=== PATIENT | female | born 1960 | race Caucasian/White ===

== ENCOUNTER 2017-02-04 16:28 | Emergency (ER) | payer OTHER ==
[~2017-02-04] VITALS: Wt 49.9 kg
[~2017-02-04 16:28] MED LIST: VICODIN 5/500 505 MG PO; ZITHROMAX Z PA250 MG PO
[2017-02-04] MEDS ORDERED: BISOPROLOL FM5 MG PO (16:39)
[2017-02-04] MEDS ORDERED: MONTELUKAST SOD10 MG PO (16:40)
[2017-02-04 18:31] LABS: BASO % 0.3 % (0.0-1.0); EOS % 0.2 % (1.0-4.0); HEMATOCRIT 38.5 % (37.0-47.0); HEMOGLOBIN 13.3 g/dl (12.0-16.0); LYMPH # 1.5 10*3/uL (1.3-4.4); LYMPH % 24.5 % (27.0-41.0); MEAN CELL VOLUME 92.3 fl (81.0-99.0); MEAN CORPUSCULAR HGB 31.9 pg (27.0-31.0); MEAN CORPUSCULAR HGB CONC 34.5 g/dl (33.0-37.0); MEAN PLATELET VOLUME 9.5 fl (9.6-12.3); MONO # 0.8 10*3/uL (0.1-1.0); MONO % 12.2 % (3.0-9.0); NEUT # 3.9 10*3/uL (2.3-7.9); NEUT % 62.6 % (47.0-73.0); PLATELET COUNT AUTOMATED 128 10*3/uL (130-400); RED BLOOD COUNT 4.17 10*6/uL (4.10-5.10); RED CELL DISTRI WIDTH 12.5 % (0-14.5); WHITE BLOOD COUNT 6.2 10*3/uL (4.8-10.8)
[2017-02-04 18:45] LABS: ALBUMIN 3.5 gm/dl (3.1-4.5); ALKALINE PHOSPHATASE 60 U/L (45-117); BILIRUBIN, TOTAL 0.4 mg/dl (0.2-1.0); BUN 8 mg/dl (7-24); CARBON DIOXIDE 27 mmol/L (21-32); CHLORIDE 104 mmol/L (98-107); EST GLOM FILT AFRICAN AMERICAN > 60 ml/min; GLUCOSE 107 mg/dL (65-99); POTASSIUM 3.9 mmol/L (3.5-5.1); SGOT/AST 28 IU/L (3-35); SGPT/ALT 32 U/L (12-78); SODIUM 138 mmol/L (136-145); TOTAL PROTEIN 7.2 gm/dL (6.4-8.2)
[2017-02-04] MEDS ORDERED: Fioricet 325 MG1 TAB PO (19:13)
== END 2017-02-04 19:47 | disposition home or self-care (01) ==
LOC: ED 16:28
PROVIDERS: Registered Nurse
DX: R51 Headache (principal); R50.9 Fever, unspecified; R52 Pain, unspecified; R25.1 Tremor, unspecified; Z88.1 Allergy status to other antibiotic agents; Z79.899 Other long term (current) drug therapy

== ENCOUNTER → 2021-06-13 | Outpatient (CLI) | payer SELFPAY ==
[~2021-06-13] MED LIST changes: +BISOPROLOL FM5 MG PO; +Fioricet 325 MG1 TAB PO; +MONTELUKAST SOD10 MG PO
== END | disposition home or self-care (01) ==
LOC: MAMMO 11:15
PROVIDERS: ATTEND Internal Medicine
DX: Z12.31 Encounter for screening mammogram for malignant neoplasm of breast (principal)

== ENCOUNTER → 2025-05-03 | Outpatient (CLI) | payer MEDICARE | END | disposition home or self-care (01) | LOC: CT 02:41 | PROVIDERS: ATTEND Internal Medicine | DX: Z12.2 Encounter for screening for malignant neoplasm of respiratory organs (principal); R91.8 Other nonspecific abnormal finding of lung field; I25.10 Atherosclerotic heart disease of native coronary artery without angina pectoris; J43.9 Emphysema, unspecified; F17.210 Nicotine dependence, cigarettes, uncomplicated ==